=== PATIENT | male | born 1955 | race Asian ===

== ENCOUNTER → 2018-11-28 | Outpatient (CLI) | payer BC | END | disposition home or self-care (01) | LOC: RADPV 12:51 | PROVIDERS: ATTEND Family Medicine | DX: M65.341 Trigger finger, right ring finger (principal); R20.0 Anesthesia of skin ==

== ENCOUNTER → 2019-07-27 | Outpatient (CLI) | payer BC | END | disposition home or self-care (01) | LOC: RADPV 12:43 | PROVIDERS: ATTEND Family Medicine | DX: R91.1 Solitary pulmonary nodule (principal); R61 Generalized hyperhidrosis; M46.00 Spinal enthesopathy, site unspecified; R05 Cough ==

== ENCOUNTER 2020-01-04 12:53 | Emergency (ER) | payer BC ==
[~2020-01-04] VITALS: Ht 167.6 cm; Wt 74.5 kg
[2020-01-04] MEDS ORDERED: OMEP20 PO (12:58)
[2020-01-04] MEDS ORDERED: ATOR10TA84 PO (12:58)
[2020-01-04] MEDS ORDERED: NAPR250T4 PO (12:58)
[2020-01-04] MEDS ORDERED: NAPR-1025 PO (13:03)
[2020-01-04 14:26] LABS: BASOPHILS % (AUTO) 0.7 % (0.0-2.0); EOSINOPHILS % (AUTO) 2.8 % (1.0-6.0); HEMOGLOBIN 14.4 g/dL (13.5-17.5); LYMPHOCYTES # (AUTO) 1.4 K/uL (1.0-4.8); LYMPHOCYTES % (AUTO) 20.3 % (22.0-44.0); MEAN CORPUSCULAR HEMOGLOBIN 29.5 pg (26.0-34.0); MEAN CORPUSCULAR HGB CONC 33.4 G/dL (31.0-37.0); MEAN CORPUSCULAR VOLUME 88 fL (80-100); MONOCYTES # (AUTO) 0.7 K/uL (0.1-1.0); MONOCYTES % (AUTO) 9.8 % (2.0-9.0); NEUTROPHILS # (AUTO) 4.5 K/uL (1.8-7.7); NEUTROPHILS % (AUTO) 66.4 % (40.0-70.0); PLATELET COUNT (AUTO) 175 K/uL (150-450); RED BLOOD CELL COUNT(AUTO) 4.87 MIL/uL (4.50-5.90); RED CELL DISTRIBUTION WIDTH 13.7 % (11.5-14.5)
[2020-01-04 14:56] LABS: ANION GAP 5 mmol/L (8-16); CALCIUM, TOTAL 9.5 mg/dL (8.8-10.5); CARBON DIOXIDE 32 mmol/L (22-29); CHLORIDE 106 mmol/L (98-107); CREATININE 0.91 mg/dL (0.60-1.30); GLOMERULAR FILTR. RATE CALC > 60 mL/min (>60); GLUCOSE,RANDOM 100 mg/dL (70-110); POTASSIUM 3.8 mmol/L (3.5-5.1); SODIUM SERUM 143 mmol/L (136-145); UREA NITROGEN, BLOOD 21 mg/dL (7-18)
[2020-01-04 14:58] LABS: ALANINE AMINOTRANSFERASE 41 U/L (12-78); ALBUMIN 4.3 g/dL (3.4-5.0); ASPARTATE AMINOTRANSFERASE 31 U/L (15-37); BILIRUBIN,TOTAL 0.4 mg/dL (0.1-1.0); TOTAL PROTEIN, SERUM 8.1 g/dL (6.4-8.2)
[2020-01-04 15:10] LABS: ALKALINE PHOSPHATASE 84 U/L (46-116)
[2020-01-04 15:56] VITALS: BP 160/115
== END 2020-01-04 15:59 | disposition home or self-care (01) ==
LOC: EMS 12:55
DX: I10 Essential (primary) hypertension (principal); R51 Headache; E78.00 Pure hypercholesterolemia, unspecified; Z88.6 Allergy status to analgesic agent; Z79.899 Other long term (current) drug therapy
CPT/HCPCS: 93005; 36415-L1; 36415-TC; 71045-TC

== ENCOUNTER 2023-05-03 07:00 | Emergency (ER) | payer BC, MEDICARE ==
[~2023-05-03] VITALS: Ht 170.2 cm; Wt 72.7 kg
[~2023-05-03 07:00] MED LIST: ATOR10TA PO; NAPR-1025 PO; OMEP20 PO
[2023-05-03 07:08] VITALS: BP 151/90; PULSE 75; RESP 18; TEMP 98.4
[2023-05-03] MEDS ORDERED: HYDR25TA PO (07:10)
[2023-05-03] MEDS ORDERED: ATOR10TA69 PO (07:10)
[2023-05-03 08:14] LABS: BASOPHILS % (AUTO) 0.8 % (0.0-2.0); EOSINOPHILS % (AUTO) 4.2 % (1.0-6.0); HEMATOCRIT 42.4 % (41-53); HEMOGLOBIN 14.3 g/dL (13.5-17.5); LYMPHOCYTES # (AUTO) 1.3 K/uL (1.0-4.8); LYMPHOCYTES % (AUTO) 23.4 % (22.0-44.0); MEAN CORPUSCULAR HEMOGLOBIN 29.8 pg (26.0-34.0); MEAN CORPUSCULAR HGB CONC 33.8 G/dL (31.0-37.0); MEAN CORPUSCULAR VOLUME 88 fL (80-100); MONOCYTES # (AUTO) 0.5 K/uL (0.1-1.0); MONOCYTES % (AUTO) 8.8 % (2.0-9.0); NEUTROPHILS # (AUTO) 3.6 K/uL (1.8-7.7); NEUTROPHILS % (AUTO) 62.8 % (40.0-70.0); PLATELET COUNT (AUTO) 176 K/uL (150-450); RED BLOOD CELL COUNT(AUTO) 4.81 MIL/uL (4.50-5.90); RED CELL DISTRIBUTION WIDTH 13.4 % (11.5-14.5); WHITE BLOOD COUNT (AUTO) 5.7 K/uL (4.5-11.0)
[2023-05-03 08:26] LABS: ANION GAP 10 mmol/L (8-16); CALCIUM, TOTAL 9.7 mg/dL (8.8-10.5); CARBON DIOXIDE 30 mmol/L (22-29); CHLORIDE 99 mmol/L (98-107); CREATININE 0.94 mg/dL (0.60-1.30); GLOMERULAR FILTR. RATE CALC > 60 mL/min (>60); GLUCOSE,RANDOM 107 mg/dL (70-110); POTASSIUM 3.6 mmol/L (3.5-5.1); SODIUM SERUM 139 mmol/L (136-145); UREA NITROGEN, BLOOD 15 mg/dL (7-18)
[2023-05-03 08:28] LABS: TROPONIN I-HIGH SENSITIVITY 5 ng/L (<76)
[2023-05-03 08:30] LABS: ALANINE AMINOTRANSFERASE 33 U/L (12-78); ALBUMIN 4.1 g/dL (3.4-5.0); ALKALINE PHOSPHATASE 75 U/L (46-116); ASPARTATE AMINOTRANSFERASE 27 U/L (15-37); BILIRUBIN,TOTAL 0.4 mg/dL (0.1-1.0); TOTAL PROTEIN, SERUM 8.1 g/dL (6.4-8.2)
[2023-05-03] MEDS: ACETAMINOPHEN 325 MG TABLET PO ONE (08:59)
== END 2023-05-03 10:22 | disposition home or self-care (01) ==
LOC: EMS 07:00
DX: R07.89 Other chest pain (principal); R51.9 Headache, unspecified; E78.00 Pure hypercholesterolemia, unspecified; I10 Essential (primary) hypertension; Z98.890 Other specified postprocedural states; Z88.8 Allergy status to other drugs, medicaments and biological substances
CPT/HCPCS: 71045; 80053; 84484; 85025; 93005; 99285; 36415-L1; 36415-TC